=== PATIENT | male | born 1960 | race Caucasian/White ===

== ENCOUNTER 2023-03-15 15:30 | Emergency (ER) | payer OTHER, SELFPAY ==
[2023-03-15] VITALS (10 sets, daily range): BP systolic 124–165; BP diastolic 59–84; PULSE 52–76; RESP 10–18; TEMP 36.4; O2SAT 90–100
--- NOTE | ~2023-03-15 | CT_ITS ---
EXAMINATION: CT abdomen pelvis w con DATE: 03/15/2023 17:44 INDICATION: Left lower quadrant abdominal pain, nausea and vomiting. TECHNIQUE: Computed tomography (CT) of the abdomen and pelvis was performed with 100 mL Omnipaque-350 intravenous contrast. Automated exposure control and iterative reconstruction technique were employe d. The dose-length product was 714.30 mGy-cm. COMPARISON: None FINDINGS: Mild dependent atelectasis in the bilateral lower lobes. Heart size is normal. No pericardial or pleu ral effusion. Mild intra and extrahepatic biliary ductal dilation which is within normal limits post cholecystectomy with surgical clips the gallbladder fossa. Mild focal hepatic steatosis at the ligame ntum teres. Spleen, pancreas and bilateral adrenal glands are normal. Bilateral nonobstructing nephro lithiasis with 2 mm stone in upper pole calyx of the right kidney, 1 mm stone in upper pole calyx of the left kidney and 2 mm stone in a middle calyx of the left kidney. There are also a couple bilatera l renal cysts the largest on the left measuring 1.2 cm. No ureteral stones or hydronephrosis. Bladder is normal. Several phleboliths in the pelvis. Moderate amount of stool through the proximal colon to the distal descending colon with relatively decompressed sigmoid colon. Small bowel and appendix are normal. No free intraperitoneal gas or fluid. No pathologically enlarged abdominal or pelvic lymphad enopathy. Tiny fat-containing umbilical hernia. Mild lumbar levocurvature with mild thoracolumbar spo ndylosis. IMPRESSION: 1. Bilateral nonobstructing nephrolithiasis. 2. Nonspecific moderate to large amount of stool throughout the proximal two thirds of the colon whic h could be seen with constipation. 3. Mild intra and extrahepatic biliary ductal dilation which is within normal limits post cholecystec michael but could correlate with liver function tests. 4. Tiny fat-containing umbilical hernia. Reviewed, dictated and finalized at location A. IMPRESSION: 1. Bilateral nonobstructing nephrolithiasis. 2. Nonspecific moderate to large amount of stool throughout the proximal two th irds of the colon which could be seen with constipation. 3. Mild intra and extrahepatic biliary ductal dilation which is within normal l imits post cholecystectomy but could correlate with liver function tests. 4. Tiny fat-containing umbilical hernia.
[2023-03-15 16:24] LABS: Basophils Percent Auto 0.4 % (0.2-1.2); Eosinophils Absolute Auto 0.1 K/mm3 (0-0.3); Eosinophils Percent Auto 1.4 % (0-4.4); Hematocrit 42.6 % (42.0-52.0); Hemoglobin 14.6 g/dL (14.0-18.0); Immature Granulocyte Absolute 0.02 K/mm3 (0.00-0.031); Immature Granulocyte Percent A 0.2 % (0-0.5); Lymphocytes Percent Auto 18.8 % (18.3-44.2); Mean Corpuscular HGB Conc 34.3 g/dl (32-36); Mean Corpuscular Hemoglobin 31.2 pg (26-34); Mean Platelet Volume 9.2 fl (7.4-10.4); Monocytes Percent Auto 10.6 % (2.6-8.5); Neutrophils Absolute Auto 6.2 K/mm3 (1.3-6.7); Neutrophils Percent Auto 68.6 % (45.5-73.1); Platelet Count Result 206 k/mm3 (150-375); Red Blood Count 4.68 M/mm3 (4.6-6.20); Red Cell Distribution Width 12.8 % (11.5-14.5)
[2023-03-15 16:35] LABS: Alanine Aminotransferase 29 U/L (6-50); Albumin Level 4.5 g/dL (3.5-5.1); Alkaline Phosphatase 69 U/L (38-126); Anion Gap 10 mmol/L (8-16); Aspartate Amino Transferase 36 U/L (17-59); Bilirubin,Total 0.6 mg/dL (0.2-1.3); Blood Urea Nitrogen 18 mg/dL (9-20); Calcium 9.3 mg/dL (8.4-10.2); Carbon Dioxide 25 mmol/L (22-30); Chloride 104 mmol/L (98-107); Estimated CRCL calculation 104 ml/min; Estimated Glomerular Filt Rate > 60; Glucose 160 mg/dL (65-110); Lipase 103 U/L (23-300); Potassium 3.1 mmol/L (3.4-5.0); Sodium 139 mmol/L (137-145)
--- NOTE | 2023-03-15 16:42 | ED.ABDPAIN ---
HPI - Abdominal Pain General Chief Complaint: Abdominal Pain Stated Complaint: Abdomen pain Time Seen by Provider: 03/15/23 16:33 History of Present Illness HPI narrative: Pt presents with sudden onset left lower abdominal/inguinal pain two hours ago. Pt says the pain is not constant but comes and goes, Pt denies urinary symptoms. Pt has had inguinal hernia repair on right and kidney stones and diverticulitis as well. Pt denies vomiting or diarrhea. Related Data Allergies Allergy/AdvReac Type Severity Reaction Status Date / Time grass pollen Allergy Unknown Sneezing Verified 03/15/23 19:25 morphine Allergy Unknown Back Pain Verified 03/15/23 19:25 Review of Systems Review of Systems: All systems reviewed & are unremarkable except as noted in HPI and below PMFSH Family History Family History (Updated 07/21/18 @ 08:22 by DOCTOR UNKNOWN) Other Carcinoma of colon Family history of coronary artery disease Social History Social History Smoking status: Never smoker Alcohol intake: never Exam Const: General: healthy appearing Nutritional Appearance: well nourished Orientation/consciousness: patient oriented x3 Limitations: no limitations Eyes: EOM: EOMs intact bilaterally Resp: Effort & Inspection: normal respiratory effort Auscultation: clear to auscultation bilaterally Cardio: Rate: regular rate Rhythm: regular rhythm GI: GI Palp: Yes Soft to palpation Other: tender left inguinal area to palpation : Scrotum: scrotum normal Testes: Testes normal Skin: General skin exam: normal color Neuro: General: patient oriented x3, moves all extremities and CN's II-XI intact bilaterally Cranial nerves: Yes Nystagmus not present Speech: normal speech Extrem: General: normal to inspection and no clubbing, cyanosis or edema Psych: Mental Status: mental status grossly normal Affect: normal affect Attitude: cooperative Course Vital Signs Vital signs: Vital Signs Temperature 97.6 F 03/15/23 16:03 Pulse Rate 52 L 03/15/23 16:03 Respiratory Rate 16 03/15/23 16:03 Blood Pressure 124/61 03/15/23 16:03 Pulse Oximetry 100 03/15/23 16:03 Oxygen Delivery Room Air 03/15/23 16:03 Temperature 97.6 F 03/15/23 16:03 Pulse Rate 76 03/15/23 19:16 Respiratory Rate 14 03/15/23 19:16 Blood Pressure 144/82 H 03/15/23 19:16 Pulse Oximetry 99 03/15/23 19:16 Oxygen Delivery Room Air 03/15/23 16:03 MDM - Abdominal Pain MDM Narrative Medical decision making narrative: inguinal hernia, incarcerated possible, diverticulitis, kidney stone all possible will need ct and labs and ua will give dilaudid for pain control. CT shows constipation but no evidense of hernia or obstruction or ureterolithiasis. Family would lke to contact surgery business analysis professional which I will do will give one more dose of dilaudid for pain. discussed with dr mayen nothing to admit for. have follow up with dr chaparro. Lab Data 03/15/23 16:19 03/15/23 16:19 Labs: Lab Results 03/15/23 03/15/23 Range/Units 16:19 18:03 WBC 9.0 (4.5-10.0) K/mm3 RBC 4.68 (4.6-6.20) M/mm3 Hgb 14.6 (14.0-18.0) g/dL Hct 42.6 (42.0-52.0) % MCV 91.0 (80-100) fl MCH 31.2 (26-34) pg MCHC 34.3 (32-36) g/dl RDW 12.8 (11.5-14.5) % Plt Count 206 (150-375) k/mm3 MPV 9.2 (7.4-10.4) fl Immature Gran % (Auto) 0.2 (0-0.5) % Neut % (Auto) 68.6 (45.5-73.1) % Lymph % (Auto) 18.8 (18.3-44.2) % [place] % (Auto) 10.6 H (2.6-8.5) % Eos % (Auto) 1.4 (0-4.4) % Baso % (Auto) 0.4 (0.2-1.2) % Lymph # (Auto) 1.70 (0.9-3.2) K/mm3 [place] # (Auto) 1.0 H (0.1-0.6) K/mm3 Eos # (Auto) 0.1 (0-0.3) K/mm3 Baso # (Auto) 0.0 (0.0-0.1) K/mm3 Abs Immat Gran (auto) 0.02 (0.00-0.031) K/mm3 Absolute Neuts (auto) 6.2 (1.3-6.7) K/mm3 Absolute Nucleated RBC 0.0 (0.0-0.012) K/mm3 Nucleated RBC % 0.0 (0.0-0.2) % Sodium 139 (137-145) mmol/
[2023-03-15] MEDS: HYDROmorphone HCL INJ (*CRX) 1 MG/ML SYR IV PUSH ×2 (16:51→19:27)
[2023-03-15] MEDS: SODIUM CHLORIDE 0.9% IV 1,000 ML 999 ML IV CONT (16:51)
[2023-03-15] MEDS: ONDANSETRON INJ 4 MG/2 ML VIAL IV PUSH (16:51)
[2023-03-15 18:12] LABS: Appearance Urine Clear (Clear); Bilirubin Urine Negative (Negative); Blood Urine Negative (Negative); Color Urine Dark Yellow (Yellow); Glucose Urine UA Negative (Negative); Ketones Urine Trace mg/dL (Negative); Leukocyte Esterase Ur Negative LEU/UL (Negative); Nitrate Urine Negative (Negative); Protein Urine Negative (Negative); Urobilinogen Urine 0.2 mg/dL (<2.0); pH Urine 5.5 (5.0-9.0)
[2023-03-15 18:35] LABS: Specific Grav Ur 1.039 (1.001-1.035)
[2023-03-15 18:36] LABS: Add Urine Microscopic? NO
== END 2023-03-15 19:58 | disposition home or self-care (01) ==
PROVIDERS: Emergency Medicine; Emergency Provider Emergency Medicine; PCP Family Medicine
DX: R10.32 Left lower quadrant pain (principal); N20.0 Calculus of kidney; K42.9 Umbilical hernia without obstruction or gangrene; R93.3 Abnormal findings on diagnostic imaging of other parts of digestive tract
CPT/HCPCS: 36415; 74177; 80053; 81003; 83690; 85025; 96361; 96374; 96375; 96376; 99284; J1170; J2405; J7030; Q9967

== ENCOUNTER 2024-08-17 09:22 | Outpatient (CLI) | payer OTHER, SELFPAY ==
[2024-08-17 09:52] LABS: Basophils Absolute Auto 0.1 K/mm3 (0.0-0.1); Eosinophils Absolute Auto 0.2 K/mm3 (0-0.3); Eosinophils Percent Auto 3.1 % (0-4.4); Hematocrit 43.2 % (42.0-52.0); Hemoglobin 14.2 g/dL (14.0-18.0); Immature Granulocyte Absolute 0.01 K/mm3 (0.00-0.031); Immature Granulocyte Percent A 0.2 % (0-0.5); Lymphocytes Absolute Auto 1.74 K/mm3 (0.9-3.2); Lymphocytes Percent Auto 30.3 % (18.3-44.2); Mean Corpuscular HGB Conc 32.9 g/dl (32-36); Mean Corpuscular Volume 94.3 fl (80-100); Monocytes Absolute Auto 0.6 K/mm3 (0.1-0.6); Monocytes Percent Auto 11.1 % (2.6-8.5); Neutrophils Absolute Auto 3.1 K/mm3 (1.3-6.7); Neutrophils Percent Auto 54.3 % (45.5-73.1); Platelet Count Result 196 k/mm3 (150-375); Red Blood Count 4.58 M/mm3 (4.6-6.20); Red Cell Distribution Width 13.1 % (11.5-14.5); White Blood Count 5.8 K/mm3 (4.5-10.0)
[2024-08-17 10:02] LABS: Anion Gap 6 mmol/L (4-12); Blood Urea Nitrogen 18 mg/dL (9-20); Calcium 9.6 mg/dL (8.4-10.2); Carbon Dioxide 30 mmol/L (22-30); Chloride 103 mmol/L (98-107); Estimated Glomerular Filt Rate > 60; Glucose 100 mg/dL (65-110); Potassium 4.4 mmol/L (3.4-5.0); Sodium 139 mmol/L (137-145)
== END 2024-08-17 09:23 | disposition home or self-care (01) ==
LOC: ANHSURGERY 09:27
PROVIDERS: PCP Family Medicine; Visit Provider Surgery
DX: K40.90 Unilateral inguinal hernia, without obstruction or gangrene, not specified as recurrent (principal)
CPT/HCPCS: 36415; 80048; 85025; 86850; 86900; 86901

== ENCOUNTER 2024-08-23 00:59 | Day surgery (SDC) | payer OTHER, SELFPAY ==
[2024-08-15 13:10] VITALS: BMI 26.8
--- NOTE | 2024-08-15 13:17 | PC.NURSE ---
Report to the Outpatient Waiting Room, entrance under the green pavilion located off [facility], at time _1000_ on date _[id number]_. Planned Procedure Time: _1200_.? Time changes happen often and if your time is changed the preop area will call you the afternoon before. - You and your visitor will be asked to self-screen and do not enter if you have any COVID symptoms. Please call surgeon if you need to reschedule. - A mask is optional within the hospital at this time. Patients may have clear liquids (water, carbonated beverages, clear teas, apple juice) until 3 hours prior to surgery with a maximum of 20 ounces. - No food from midnight until time of surgery and no smoking Take only the following medications with a SIP of water on the morning of surgery___None DO NOT STOP ANY OF YOUR OTHER PRESCRIPTION MEDICATIONS PRIOR TO SURGERY EXCEPT THE FOLLOWING Medications to discontinue per physician ___Vitamins Date to take last hvfl__[id number] Please no make-up, nail swedish, hairspray, perfume, deodorant, or body powder the day of surgery.? No jewelry (including any body piercings) or valuables the day of surgery, leave them at home.? Please take a shower or bath the night before, or the morning of, surgery with an antibacterial soap.? Wear comfortable, loose fitting clothing.? - Jewelry must be removed prior to entering the operating room.? Rings and piercings that are not removed may be cut off. - The hospital will not accept responsibility for valuables.? - Please leave all valuables, including medications, at home the day of surgery. If you are going home after surgery, a licensed driver/sales workers must drive you home.? - NO public transportation without another adult if you receive anesthesia. - We recommend that an adult stay with you for 24 hours following discharge. - We also recommend that you do not drive, make important decision, drink alcoholic beverages, or take any drugs that were not prescribed by your health care provider for at least 24 hours after your discharge time. Follow any additional instructions given to you from your surgeon. Telephone instructions given to __Paul__and asked if any additional questions and then verbalized understanding. Patient advised to call surgeon office or pre surgery nurse liaison [phone] if any additional questions.
[2024-08-23] VITALS (13 sets, daily range): BP systolic 123–145; BP diastolic 57–70; PULSE 64–74; RESP 11–18; TEMP 36.4; O2SAT 99–100
--- NOTE | 2024-08-23 08:16 | P.SS_ITS ---
Same Day Admit/Disch: HPI History of Present Illness Chief complaint: Left Inguinal Hernia Narrative: Luis Jha is a 63 year old male who has a long history of having episodes of severe left lower quadrant pain associated with near syncope after bowel movement. He had an MRI that suggested a left inguinal hernia. Exam in my office noted a left inguinal hernia near the internal ring. He is taken to surgery at this time for robotic laparoscopic left inguinal hernia repair with mesh PMFSH Past Medical History Medical History (Updated 08/23/24 @ 14:21 by Regulo Reyes MD) Overweight Surgical History Surgical History Hx laparoscopic cholecystectomy Hx of excision of mass Hx of inguinal hernia repair Right Hx of knee surgery Family History Family History Other Carcinoma of colon Family history of coronary artery disease Social History Social History Smoking status: Never smoker Alcohol intake: never Substance use: never Living arrangements: with family Occupation/Education: retired Spiritual care concerns: No Same Day Admit/Disch: Med Pre-admit Medications Home Medications Medication Instructions Recorded Confirmed Type fexofenadine 180 mg tablet 180 mg PO DAILY 03/21/23 08/15/24 History (Zeny Allergy) mcblvdaa-usgjpbgk-rbnug acid 400 1 tablet PO DAILY 03/21/23 08/23/24 History mcg-vit K 20 mcg-lycop 300 mcg tablet (One-A-Day Men's Multivitamin) cholecalciferol (vitamin D3) 50 50 mcg PO DAILY 08/15/24 08/23/24 History mcg (2,000 unit) capsule (Vitamin D3) ketorolac 10 mg tablet 10 mg PO Q6H 4 days #16 tabs 08/23/24 Rx oxycodone-acetaminophen 5 mg-325 0.5 - 1 tablet PO Q6H PRN pain #10 08/23/24 Rx mg tablet tabs Review of Systems Review of Systems All systems reviewed & are unremarkable except as noted in HPI and below (HPI) Exam Const: General: comfortable, no acute distress, alert and awake HENMT: Head: normocephalic and atraumatic Mouth: Yes Normal oral and palatal mucosa present Eyes: Conjunctivae: conjunctivae normal Pupils: Equal, round and reactive pupils present EOM: EOMs intact bilaterally Neck: Neck: normal visual inspection, no lymphadenopathy and nontender Resp: Effort & Inspection: normal respiratory effort Auscultation: clear to auscultation bilaterally Cardio: Rate: regular rate Rhythm: regular rhythm Heart sounds: no gallops, no murmurs and no rubs GI: Inspection: non-distended GI Palp: Yes Soft to palpation, No Tenderness to palpation present (GI), No Hepatomegaly present and No Splenomegaly present : Male General Exam: Yes hernia (Left inguinal bulge with cough right at the internal ring consistent with h) Penis: Yes normal penis Scrotum: scrotum normal Testes: Testes normal Skin: Lesions: no lesions Rashes: no rashes Neuro: General: no focal motor deficits and CN's II-XI intact bilaterally Cranial nerves: Yes Equal, round and reactive pupils present, Yes Bilaterally intact EOM present, Yes facial symmetry and Yes Midline tongue present Sp eech: normal speech Motor exam (neuro): 5/5 motor strength present throughout and Motor abnormalities not present Extrem: General: no clubbing, cyanosis or edema and edema Psych: Affect: normal affect Thought process: Normal thought process present Insight: Good insight present (Psych) DS: Summary Time Spent with Patient Time attestation: Total time spent providing and/or coordinating discharge services: DS: Admitting Diagnosis Discharge Date 08/23/2024 Admitting Diagnosis * Symptomatic reducible left inguinal hernia-I discussed the procedure, the risks, alternatives, including the usual recovery. He understands this will be done laparoscopically and that mesh will be used. All questions were answered. He agrees to go ahead. DS: Discharge Diagnosis Discharge Diagnosis (1) Left inguinal hernia: Code(s): K40.90 - Unilateral inguinal hernia, without obstruction or gangrene, not specified as recurrent Status: Acute Assessment and Plan: Robotic laparoscopic repair with 3DMax mesh performed 08/23/[address] Reyes Discharge Plan Discharge Patient Disposition: Home, Self-Care Discharge Instructions: 1. May shower the day after surgery over incisions. 2. Call office for: -Wound increasingly painful or bleeding -Vomiting -Fever of greater than 101 degrees 3. Wear scrotal support during the day for 1 week. Remove when sleeping and showering. 4. If no bowel movement for three days, take 1 oz. (30 ml) Milk of Magnesia, if no results, take Fleets enema. 5. No heavy lifting > 15-20 pounds for 2 weeks. 6. No driving for 3 days or while taking narcotic pain medications. 7. Up walking 10-30 minutes three times per day. 8. Resume previous home medications. 9. Follow-up 10-14 days in office for wound check or as previously scheduled. 10. Oral pain medications prescription to be sent home with patient. 11. NUTRITION: Start out by drinking fluids and increase your diet as tolerated. If you experience nausea, try dry toast, crackers, and 7-UP. If nausea or vomiting persists, contact your surgeon?s office. Stand Alone Forms: General Discharge Instructions Follow-up/Referrals: Regulo Reyes MD [Physician] - 2 Weeks (Call for appointment if one has not already been made) Discharge Medications: New ketorolac 10 mg tablet 10 mg PO Q6H 4 Days Qty: 16 0RF oxycodone-acetaminophen 5-325 mg tablet 0.5 - 1 tablet PO Q6H PRN (Reason: pain) Qty: 10 0RF Continued One-A-Day Men's Multivitamin 400-20-300 mcg tablet 1 tablet PO DAILY fexofenadine [Zeny Allergy] 180 mg tablet 180 mg PO DAILY cholecalciferol (vitamin D3) [Vitamin D3] 50 mcg (2,000 unit) Capsule 50 mcg PO DAILY
--- NOTE | 2024-08-23 08:20 | WPDHPUPDATE1 ---
History and Physical Update Update Date/Time: 08/23/24 08:20 History and Physical has been reviewed, including an updated exam of the patient. There are NO changes in the patient's condition. Risks, benefits, and alternatives have been discussed and questions answered. Patient agrees to proceed with procedure.
[2024-08-23] MEDS: ACETAMINOPHEN 500 MG TABLET 1000 MG PO (10:45)
[2024-08-23] MEDS: KETOROLAC 15 MG/ML VIAL (*BKC) IV PUSH (10:45)
[2024-08-23] MEDS: LACTATED RINGERS 1,000 ML 30 ML IV CONT ×3 (10:45→16:00)
--- NOTE | 2024-08-23 10:45 | P.PNAN_ITS ---
Anes - Initial Pre Proc Eval Procedure: Operation Date: 08/23/24 12:00 Proposed Procedures p Robotic Assisted Left Inguinal Hernia Repair with Mesh - Regulo Reyes MD Date/Time: 08/23/24 10:45 Surgeon: Regulo Reyes MD Pre Op Diagnosis: Left Inguinal Hernia Patient Data Age: 63 Gender: M Height: 1.93 m Weight: 100 kg Allergies Allergy/AdvReac Type Severity Reaction Status Date / Time No Known Allergies Allergy Verified 08/15/24 13:08 Home Medications Medication Instructions Recorded Confirmed Type fexofenadine 180 mg tablet 180 mg PO DAILY 03/21/23 08/15/24 History (Zeny Allergy) lopoyspr-ljrxkcpv-dhbwq acid 400 1 tablet PO DAILY 03/21/23 08/15/24 History mcg-vit K 20 mcg-lycop 300 mcg tablet (One-A-Day Men's Multivitamin) cholecalciferol (vitamin D3) 50 50 mcg PO DAILY 08/15/24 08/15/24 History mcg (2,000 unit) capsule (Vitamin D3) Patient hx anesthesia problems: none Family hx anesthesia problems: none Results Review: All pre-operative results and documents have been reviewed as part of the pre- operative evaluation. [facility] Past Medical History Medical History (Updated 08/23/24 @ 10:45 by Kevin Small MD) Overweight Surgical History Surgical History Hx laparoscopic cholecystectomy Hx of excision of mass Hx of inguinal hernia repair Right Hx of knee surgery Family History Family History Other Carcinoma of colon Family history of coronary artery disease Social History Social History Smoking status: Never smoker Alcohol intake: never Substance use: never Living arrangements: with family Occupation/Education: retired Spiritual care concerns: No Anes - Eval Final PreProcedure Day of Procedure 08/23/24 10:45 Patient weight: overweight Heart: regular rate and rhythm Lungs: clear to auscultation Airway: Mallampati scale class II Neurological: alert and oriented Last oral intake: >/= 8 hours ASA classification: II Emergent: no Anesthetic plan: proceed Anesthesia type and monitoring: general ETT and standard monitoring Results Review: All pre-operative results and documents have been reviewed as part of the pre- operative evaluation. Informed Consent: The patient's anesthetic plan and its attendant risks and benefits were discussed with the patient/family/POA. Questions were solicited and answers provided to the satisfaction of the patient/family/POA.
[2024-08-23] MEDS: ceFAZolin 2 GM/D5W 50 ML 2 GM/50 ML BAG IVPB (12:12)
[2024-08-23] MEDS: BUPIVACAINE/EPINEPHRINE 0.5% 10 ML VIAL 30 ML INFILTRATE (13:53)
--- NOTE | 2024-08-23 14:10 | W.PM.PROC2 ---
Procedure Note - Detailed Date of Procedure 08/23/24 Pre-op Diagnosis Left Inguinal Hernia Post-op Diagnosis Same Procedure Performed Robotic laparoscopic repair left inguinal hernia with extra-large 3DMax mid mesh Surgeon Regulo Reyes MD [employer] Carlos Alberto BYRD Anesthesia General and Local Indications Patient was having severe left lower quadrant abdominal pain after bowel movements. He was noted to have a left inguinal hernia on exam and on MRI. He is taken to surgery now for robotic laparoscopic repair with mesh Findings Patient had a direct inguinal hernia Description of Procedure Patient was taken to surgery and induced into general anesthesia. The abdomen was prepped and draped. Initially a 5 mm applied Medical optical port was placed in the left subcostal position. Robotic ports were placed and this port was swapped out for an 8 mm robotic port in the usual fashion. Local was infiltrated prior to placement of each of the trocars. Patient was then placed in Trendelenburg. Mesh and suture were placed in the abdomen. The robot was brought into the field and the camera was docked and targeted. The instrument arms were placed and positioned. The surgeon went to the robotic console. An anterior peritoneal flap was then created over the area of the inguinal canal structures. The flap was dissected broadly medially and laterally. Medially, dissection of fatty tissue off the rectus muscle was carried out and eventually we dissected down to the pubis and Isaiah's ligament. Care was taken to protect the urinary bladder. During the dissection, the direct hernia was noted and the transversalis fascia was carefully dissected from the peritoneal flap and associated fatty tissue. Hemostasis was maintained at all times. We dissected across the midline to the medial aspect of the right rectus muscle. Dissection was carried a couple of cm posterior to Isaiah's ligament. The peritoneum was carefully dissected off the cord structures. The peritoneum was carefully dissected at least for 5 cm posterior to the internal ring. The cord structures were carefully preserved. We removed a lipoma from the indirect space but there was no hernia there. The extra-large 3D mesh was then positioned over the inguinal canal space. It was sutured to Isaiah's ligament as well as anteriorly on the medial and lateral side of the inferior epigastric vessels. This suture was 3-0 Vicryl. The repair looked to be in very good condition. Three 0 V lock was then used and the peritoneal flap was closed from lateral to medial. The residual 3-0 Vicryl and 3-0 V lock suture with their needles were then removed. We evacuated CO2 and removed the trocar sleeves. Skin wounds were closed with subcuticular 4-0 Monocryl skin suture. Sponge needle counts were correct x2. Implants Extra-large 17 x 12 cm mid 3D max mesh left Estimated Blood Loss -5 Drains No Packing No Pathology None sent Complications None Condition Stable Disposition PACU [facility] Billing Surgery - Charge Forward: Surgery Billing (Robotic laparoscopic repair left inguinal hernia with mesh)
--- NOTE | 2024-08-23 16:10 | SUR.PHASEII ---
1527: Attempt to get patient up to chair x2 with x2 nurses. Patient became unresponsive and was laid back to stretcher. Anesthesia overhead paged to patient room. VSS. Patient awakened. Successfully able to transfer patient from stretcher to chair with x2 assist. patient a/ox4. No additional problems noted. will monitor in outpatient recovery.
[2024-08-23] MEDS: LACTATED RINGERS 1,000 ML 999 ML IV CONT (17:25)
--- NOTE | 2024-08-23 17:51 | SUR.PHASEII ---
1700: attempt to void x1 without success.
== END 2024-08-23 18:25 | disposition home or self-care (01) ==
PROVIDERS: PCP Family Medicine; Visit Provider Surgery
PROC: 8E0Y4CZ Robotic Assisted Procedure of Lower Extremity, Percutaneous Endoscopic Approach (ICD-10-PCS; CPT 49650; principal; 2024-08-23 12:00)
DX: K40.90 Unilateral inguinal hernia, without obstruction or gangrene, not specified as recurrent (principal)
CPT/HCPCS: 49650; S2900; A9270; C1781; J0690; J1100; J1171; J1885; J2003; J2250; J2405; J2704; J3010; J7120